=== PATIENT | female | born 1970 | race Two or more races ===

== ENCOUNTER → 2024-10-01 | Outpatient (CLI) | payer MEDICAID, SELFPAY ==
--- NOTE | 2024-10-01 15:30 | XR_ITS ---
Examination: Thyroid sonography complete Technique: Grayscale sonographic images thyroid lobes with color flow analysis Indications: Diagnosis nontoxic goiter difficulty swallowing 6 months Findings: Right thyroid 4.3 x 1.7 cm Upper pole nodule 5 x 4 mm Midpole nodules 13 x 11 mm, 10 x 10 mm Left thyroid 4.4 x 1.7 cm Midpole nodule 9 x 6 mm Lower pole nodule 7 x 6 mm, 6 x 5 mm Impression: Multiple bilateral thyroid nodules, the largest as above Consider ultrasound-guided fine-needle aspiration of the large vascular midpole right thyroid nodule as clinically warranted
== END | disposition home or self-care (01) ==
LOC: CDIM 15:46
DX: E04.2 Nontoxic multinodular goiter (principal)
CPT/HCPCS: 76536

== ENCOUNTER → 2024-10-06 | Outpatient (CLI) | payer MEDICAID, SELFPAY ==
[2024-10-05 14:28] LABS: Basophils # (Auto) 0.1 Thou/mm3 (0.0-0.2); Basophils % (Auto) 0 % (0-2.5); Eosinophils # (Auto) 0.5 Thou/mm3 (0.0-0.5); Eosinophils % (Auto) 4 % (0-10); Hematocrit 41.9 % (36.0-46.0); Hemoglobin 13.8 g/dL (12.0-16.0); Immature Granulocytes % (Auto) 0 % (0-0); Immature Granulocytes Auto 0.04 Thou/mm3 (0.00-0.00); Lymphocytes # (Auto) 3.4 Thou/mm3 (1.0-4.8); Lymphocytes % (Auto) 31 % (10-50); Mean Corpuscular HGB Conc 32.9 g/dl (31.0-37.0); Mean Corpuscular Hemoglobin 29.1 pg (25.0-35.0); Mean Corpuscular Volume 88 fL (80-100); Monocytes # (Auto) 0.8 Thou/mm3 (0.0-0.8); Monocytes % (Auto) 7 % (0-12); Neutrophils # (Auto) 6.4 Thou/mm3 (1.8-7.7); Neutrophils % (Auto) 57 % (37-80); Nucleated Red Blood Cell % 0 /100 WBC (0); Platelet Count 290 Thou/mm3 (140-440); RDW Standard Deviation 43.7 fL (36.4-46.3); Red Blood Count 4.75 Miln/mm3 (4.00-5.20); White Blood Count 11.2 Thou/mm3 (3.6-11.0)
[2024-10-05 14:35] LABS: Partial Thromboplastin Time 26.8 Seconds (22.0-36.0); Prothrombin Time 10.8 Seconds (9.0-12.2)
--- NOTE | 2024-10-06 08:30 | XR_ITS ---
PROCEDURE: Image-guided biopsy Procedural Personnel Attending physician(s): Wilfredo Mak MD Trainee physician(s): None Pre-procedure diagnosis: Suspicious thyroid nodule Post-procedure diagnosis: Same Indication: Histopathologic diagnosis Previous biopsy of same target (QCDR): No Complications: No immediate complications. PROCEDURE SUMMARY: - Percutaneous ultrasound-guided fine needle aspiration biopsy - Additional procedure(s): None PROCEDURE DETAILS: Pre-procedure Consent: Informed consent for the procedure including risks, benefits and alternatives was obtained and time-out was performed prior to the procedure. Preparation: The site was prepared and draped using maximal sterile barrier technique including cutaneous antisepsis. Anesthesia/sedation 1% local lidocaine Biopsy Local anesthesia was administered. Under imaging guidance as stated in the procedure summary, the biopsy needle was advanced to the target and biopsy was performed. Coaxial needle size: None Core needle size: Not applicable Number of core specimens: Not applicable Fine needle size: 21- and 25-gauge Number of FNA specimens: 4 Cytopathologist present: No Samples sent off in [facility] biopsy kit for further analysis. Needle removal The biopsy needle was removed and a sterile dressing was applied. Tract embolization: None Contrast Contrast agent: None Contrast volume (mL): [address] dose length product (mGy-cm): 0 Additional Details Estimated blood loss (mL): Less than 10 Standardized report: [id number] IMPRESSION: Image-guided biopsy of 1.3 cm right mid hemithyroid heterogeneous primarily solid, partially calcified nodule as seen on thyroid ultrasound 10/01/2024. Patient to follow-up biopsy results with referring doctor. Attestation Signer name: Wilfredo Mak MD I attest that I was present for the entire procedure. I agree with the report as written. No unintentionally retained devices were noted upon review of the images.
== END | disposition home or self-care (01) ==
LOC: SDIM 07:48 → SIRX 09:06
PROVIDERS: Radiology Diagnostic Radiology
DX: E04.1 Nontoxic single thyroid nodule (principal); Z01.812 Encounter for preprocedural laboratory examination
CPT/HCPCS: 10005; 36415; 85025; 85610; 85730